=== PATIENT | female | born 1995 | race Asian ===

== ENCOUNTER 2018-08-05 08:26 | Inpatient (IN) | payer OTHER ==
--- NOTE | 2018-08-05 07:00 | GHP ---
DATE OF ADMISSION: 08/05/2018 PREOPERATIVE DIAGNOSIS: Painful retained hardware, right elbow. PLANNED PROCEDURE: Hardware removal, right elbow. HISTORY OF PRESENT ILLNESS: The patient is a 23-year-old female who was involved in a hiking acciden t a year or so ago, fell a long distance, and sustained a complex comminuted elbow fracture. Underwe nt 2 surgeries on that with hardware placement and ligament reconstruction. The hardware is now pain ful, and she would like to have that removed. PRIOR MEDICAL HISTORY: Depression. PRIOR SURGICAL HISTORY: Tibial nailing, hand surgery, and lumbar spine surgery. MEDICATIONS: Calcium 500 mg, iron 65 mg, multivitamin, and vitamin B12. ALLERGIES: No known drug allergies. SOCIAL HISTORY: She lives here in [place]. She does not smoke. Does not drink alcohol. REVIEW OF SYSTEMS: Unremarkable. No shortness of breath or chest pain. PHYSICAL EXAMINATION: VITAL SIGNS: She is 5 feet 8 inches tall and weighs 135 pounds. Blood pressu re is 110/62, heart rate 64. GENERAL APPEARANCE: Alert and oriented x3. HEENT: Normocephalic and atraumatic. Extraocular muscles are intact. NECK: Supple. There is no lymphadenopathy. No JVD. CHEST: Clear to auscultation. CARDIOVASCULAR: Regular rate and rhythm. ABDOMEN: Soft, nontender, and nondistended. EXTREMITIES: Focusing on the right elbow, well-healed incisions. There is no ef fusion. She lacks about 30 degrees of extension and flexes to 120 degrees. 70 degrees of pronation and supination. The elbow is stable to varus and valgus stress testing. She has 2+ radial and ulnar pulses. IMAGING: X-rays show retained hardware about the elbow. The fractures have healed. The elbow is co ncentrically reduced. ASSESSMENT: Painful retained hardware, right elbow. PLAN: The patient is also going to have some hardware removed by Dr. Merchant from her spine. We will plan on the olecranon plate removal, followed by spine hardware removal by Dr. Merchant. She will jus t be a soft dressing for the arm. We will restrict her activities until the incisions have healed ab out her elbow. The risks and benefits including infection, continued elbow pain, and stiffness in th e elbow despite removing the hardware; she understands all these risks and wishes to proceed. Viktor celis plan on surgery on Wednesday at the hospital. /[id number]/MODL
[2018-08-05] MEDS ORDERED: GABAPENTIN 300 MG CAP PO ONE (08:32)
[2018-08-05] MEDS ORDERED: ceFAZolin 2 GM/DEXTROSE 100 ML IV ONE (08:32)
[2018-08-05] MEDS ORDERED: ACETAMINOPHEN 500 MG TAB PO ONE (08:32)
[2018-08-05] MEDS ORDERED: LIDOCAINE 1% 2 ML INJ ID PRN (08:33)
[2018-08-05] MEDS ORDERED: LR 1,000 ML IV ONE (08:33)
[2018-08-05] MEDS ORDERED: BUPIVACAINE/EPI 0.5% 30 ML SDV ONE (09:06)
[2018-08-05] MEDS ORDERED: BUPIVACAINE 0.25% 30 ML SDV ONE (09:07)
[2018-08-05] MEDS ORDERED: EPINEPHrine 1 MG/ML INJ ONE (09:07)
[2018-08-05] MEDS ORDERED: CHLORHEXIDINE GLUC HIBICLENS 118 ML BTL TP ONE (09:07)
[2018-08-05] MEDS ORDERED: THROMBIN (BOVINE) 20,000 UNIT VIAL TP ONE (09:07)
[2018-08-05] MEDS ORDERED: POLYMYXIN B SULFATE 500,000 UNIT/10 ML SYR IRR ONE (09:08)
[2018-08-05] MEDS ORDERED: BACITRACIN 50,000 UNITS/10 ML SYR IRR ONE (09:09)
--- NOTE | 2018-08-05 09:39 | PDHPUP ---
History & Physical Update H&P update statement: This history and physical update is based on an assessment of the patient which was completed after admission or registration (within 24 hours), but prior to the surgery/procedure. H&P update: H&P reviewed & patient examined, no change in patient's condition since H&P completed
[2018-08-05] MEDS ORDERED: MIDAZOLAM 2 MG/2 ML VIAL IVP ONE (10:03)
--- NOTE | 2018-08-05 10:03 | PDANEPAE ---
ANE History of Present Illness here for hardware removal ANE Past Medical History - Cardiovascular History Hx Hypertension: No Hx Arrhythmias: No Hx Chest Pain: No Hx Coronary Artery / Peripheral Vascular Disease: No Hx CHF / Valvular Disease: No Hx Palpitations: No - Pulmonary History Hx COPD: No Hx Asthma/Reactive Airway Disease: No Hx Recent Upper Respiratory Infection: No Hx Oxygen in Use at Home: No Hx Sleep Apnea: No Sleep Apnea Screening Result - Last Documented: Negative - Neurologic History Hx Cerebrovascular Accident: No Hx Seizures: No Hx Dementia: No - Endocrine History Hx Diabetes: No - Renal History Hx Renal Disorders: No - Liver History Hx Hepatic Disorders: No - Neurological & Psychiatric Hx Hx Neurological and Psychiatric Disorders: No Neurological / Psychiatric History Comment: DPRESSION/ANXIETY. PTSD - Cancer History Hx Cancer: No - Congenital Disorder History Hx Congenital Disorders: No - GI History Hx Gastrointestinal Disorders: No - Other Health History Other Health History: NA - Chronic Pain History Chronic Pain: No - Surgical History Prior Surgeries: 2017 REVISION OR R ELBOW ORIF. 2016 LUMBAR FUSION AND ORIF OF R ELBOW. 2014 L TIBIA ORIF. 2013 L 5TH METATARSAL ORIF ANE Review of Systems Review of Systems: - Exercise capacity METS (RN): 6 METS ANE Patient History - Allergies Allergies/Adverse Reactions: No Known Allergies Allergy (Unverified 09/02/14 21:47) - Home Medications Home Medications: Tristanian Herbs 09/02/14 [Last Taken 07/22/18] - NPO status NPO Status: no food or drink >8 hours NPO Since - Liquids (Date): 08/05/18 NPO Since - Liquids (Time): 06:30 NPO Since - Solids (Date): 08/04/18 NPO Since - Solids (Time): 20:30 - Anes Hx Anes Hx: no prior problems - Smoking Hx Smoking Status: Never smoked - Alcohol Use Alcohol Use: None - Family Anes Hx Family Anes Hx: none Family Hx Anesthesia Complications: NA ANE Labs/Vital Signs - Vital Signs Blood Pressure: 98/69 Heart Rate: 66 Respiratory Rate: 10 O2 Sat (%): 100 Height: 170.18 cm Weight: 65.771 kg ANE Physical Exam - Airway Neck exam: FROM Mallampati Score: Class 2 Mouth exam: normal dental/mouth exam - Pulmonary Pulmonary: no respiratory distress, clear to auscultation - Cardiovascular Cardiovascular: regular rate and rhythym, no murmur, rub, or gallop - ASA Status ASA Status: I ANE Anesthesia Plan Anesthesia Plan: general endotracheal anesthesia Total IV Anesthesia: Yes
--- NOTE | 2018-08-05 10:03 | PDHPUP ---
History & Physical Update H&P update statement: This history and physical update is based on an assessment of the patient which was completed after admission or registration (within 24 hours), but prior to the surgery/procedure. H&P update: H&P reviewed & patient examined, no change in patient's condition since H&P completed (Consents signed and site marked. All questions answered. )
[2018-08-05] MEDS ORDERED: PROPOFOL/EMULSION 500 MG/50 ML BOTTLE IV ONE (10:06)
[2018-08-05] MEDS ORDERED: REMIFENTANIL HCL 1 MG VIAL ONE (10:06)
[2018-08-05] MEDS ORDERED: fentaNYL 100 MCG/2 ML INJ ONE ×3 (10:06→13:30)
[2018-08-05] MEDS ORDERED: PROPOFOL 200 MG/20 ML VIAL ONE (10:06)
[2018-08-05] MEDS ORDERED: ONDANSETRON 4 MG/2 ML VIAL ONE (10:54)
[2018-08-05] MEDS ORDERED: DEXAMETHASONE 4 MG/ML VIAL ONE (10:54)
--- NOTE | 2018-08-05 10:57 | POSTOPPROG ---
Post Op Note Date of Operation: 08/05/18 Surgeon: Sara Queen Manager Child: Bernice Anesthesia: GET(General Endotracheal) Pre-op Diagnosis: Hardware failure, low back pain Post-op Diagnosis: Hardware failure, low back pain Indication: Hardware failure, low back pain Inf/Abcess present in the surg proc area at time of surgery?: No PA Addendum - Addendum .: S: low back pain O: NAD A&Ox3 MAEx4 5/5 and equal in BUE and BLE A/P 23y/o F s/p exploration and removal of Lumbar fusion hardware -Advance diet as tolerated -Optimize pain management -Given extensive tissue dissection, will place in observation for pain management -Please notify NS with any change in neuro/motor exam
[2018-08-05] MEDS ORDERED: HYDROGEN PEROXIDE 236 ML BOTTLE TP ONE (11:21)
[2018-08-05] MEDS ORDERED: ePHEDrine SULFATE 25 MG/5 ML SYR ONE (12:08)
--- NOTE | 2018-08-05 12:29 | POSTOPPROG ---
Post Op Note Date of Operation: 08/05/18 Surgeon: Bruce Zabala Store Standards Associate: sera cool Anesthesiologist: bradford Anesthesia: GET(General Endotracheal) Pre-op Diagnosis: painful retained HW RT elbow Post-op Diagnosis: same Indication: retained HW Procedure: HW removal RT elbow Findings: healed olecranon fx Inf/Abcess present in the surg proc area at time of surgery?: No EBL: Minimal Complications: none
--- NOTE | 2018-08-05 12:46 | GOP ---
DATE OF OPERATION: 08/05/2018 SURGEON: Bruce Zabala MD SHELTERED WORKSHOP WORKER: Jb Phipps, BULK SYSTEM OPERATOR, [facility] ANESTHESIA: General. ANESTHESIOLOGIST: Tc Carrasquillo MD PREOPERATIVE DIAGNOSIS: Painful retained hardware, right elbow. POSTOPERATIVE DIAGNOSIS: Painful retained hardware, right elbow. PROCEDURE PERFORMED: Hardware removal, right elbow. FINDINGS: INDICATIONS: The patient is a 23-year-old female, who is status post a complex elbow injury that req uired 2 operations with open reduction and internal fixation and ligament repair. She has gone on to heal the fracture. Hardware remains painful and she still has some stiffness. Decision was made to proceed with a hardware removal. DESCRIPTION OF PROCEDURE: After appropriate informed consent was obtained, the patient taken to the operating room and placed supine on the operating table. Time-out was performed. Patient was identi fied and correct site was identified, matched to the radiographs in the room. She received 2 g of An cef preoperatively. Following the induction of general endotracheal tube anesthesia, the right upper extremity was prepped and draped in the usual sterile fashion. I exsanguinated the limb, inflated t he tourniquet to 250 mmHg. Total tourniquet time was 54 minutes. Using the previous posterior incis ion, soft tissues were carefully dissected. The plate was easily identified from the olecranon. This was removed. There were also 3 smaller modular hand plates that were also removed without difficult y. The wound was irrigated. Deep layers closed with 0 Vicryl, superficial layers closed with 2-0 Vi cryl. Skin was closed with annetta. We instilled 20 mL of 0.5% Marcaine around the incision. A sof t sterile dressing was applied. She was then repositioned with Dr. Merchant going to continue the proc edure to remove hardware from her lumbar spine. Eladio Phipps's assistance was required throughout e entire case. COMPLICATIONS: None. DRAINS: None. /[id number]/MODL
[2018-08-05] MEDS ORDERED: NALOXONE HCL 0.4 MG/ML INJ IVP PRN (13:11)
[2018-08-05] MEDS ORDERED: HYDROCODONE/APAP 5/325 TAB PO PRN (13:11)
[2018-08-05] MEDS ORDERED: oxyCODONE IR 5 MG TAB PO PRN (13:11)
[2018-08-05] MEDS ORDERED: ONDANSETRON 4 MG/2 ML VIAL IVP PRN ×2 (13:11→13:23)
[2018-08-05] MEDS ORDERED: ACETAMINOPHEN 500 MG TAB PO PRN (13:11)
[2018-08-05] MEDS ORDERED: HYDROmorphONE/DILAUDID 1 MG/ML INJ IVP PRN (13:11)
[2018-08-05] MEDS ORDERED: PROMETHAZINE HCL 25 MG/ML INJ IVP PRN (13:11)
[2018-08-05] MEDS ORDERED: DIAZEPAM 5 MG/ML 1 ML SYR IVP PRN (13:11)
--- NOTE | 2018-08-05 13:12 | POSTANESTH ---
Post Anesthetic Evaluation Cardiovascular Status: Normal, Stable, Similar to Pre-Op Cond Respiratory Status: Normal, Stable, Similar to Pre-op Cond. Level of Consciousness/Mental Status: Can Participate in Eval, Mildly Sleepy, Arousable Pain Control: Adequate, Prn Tx Ordered Nausea/Vomiting Control: Adequate, Prn Tx Ordered Complications Possibly Related to Anesthesia: None Noted
[2018-08-05] MEDS ORDERED: METHOCARBAMOL 750 MG TAB PO PRN (13:23)
[2018-08-05] MEDS ORDERED: POLYETHYLENE GLYCOL 3350 17 GM PKT PO PRN (13:23)
[2018-08-05] MEDS ORDERED: MAGNESIUM HYDROXIDE 30 ML UDCUP PO PRN (13:23)
[2018-08-05] MEDS ORDERED: BISACODYL 10 MG SUPP PR PRN (13:23)
[2018-08-05] MEDS ORDERED: diphenhydrAMINE 25 MG CAP PO PRN (13:23)
[2018-08-05] MEDS ORDERED: LACTULOSE 20 GM/30 ML UDCUP PO PRN (13:23)
[2018-08-05] MEDS ORDERED: ONDANSETRON DISINTEGRATING 4 MG TAB PO PRN (13:23)
[2018-08-05] MEDS ORDERED: HYDROmorphONE/DILAUDID 1 MG/ML INJ ONE (13:30)
[2018-08-05] MEDS: fentaNYL 100 MCG/2 ML INJ IVP PRN ×2 (13:33→13:52)
[2018-08-05] MEDS ORDERED: oxyCODONE IR 5 MG TAB ONE (13:49)
[2018-08-05] MEDS ORDERED: ACETAMINOPHEN 500 MG TAB ONE (13:50)
[2018-08-05] MEDS: ACETAMINOPHEN 500 MG TAB PO SCH ×2 (13:50→21:34)
--- NOTE | 2018-08-05 14:27 | GOP ---
DATE OF OPERATION: 08/05/2018 SURGEON: Jim Merchant MD VENDING MACHINE COLLECTOR: KAYLYNN Higgins ANESTHESIA: General. PREOPERATIVE DIAGNOSIS: 1. L4 through pelvic fixation, status post pelvic fracture and stabilization. 2. Hardware malfunction. 3. Low back pain. 4. Treatment refractory to nonoperative intervention. POSTOPERATIVE DIAGNOSIS: 1. L4 through pelvic fixation, status post pelvic fracture and stabilization. 2. Hardware malfunction. 3. Low back pain. 4. Treatment refractory to nonoperative intervention PROCEDURE PERFORMED: 1. Exploration and removal of lumbar hardware, L4 through pelvis, from the K2 fusion system. 2. Use of intraoperative fluoroscopy, less than 1 hour physician time. FINDINGS: broken hardware SPECIMENS: None. ESTIMATED BLOOD LOSS: 20 mL. COMPLICATIONS: None. INDICATIONS: The patient is a 23-year-old woman who unfortunately had a fall while climbing. She developed a pelvic fracture for which she underwent stabilization and fusion several years ago. She has been doing quite well. But given the fact that she has healed quite well from her overall injury, she would like to have her hardware removed to regain her mobility. She presents now for that surgical intervention. DESCRIPTION OF PROCEDURE: The patient was brought to the operating theater and underwent general endotracheal anesthesia without complications. She had Venodynes, GARY hose, and the appropriate lines placed by Anesthesia. Dr. Zabala and his team will then dictate in a separate operative report the hardware removed from her elbow. Once that was completed, our team was then called into the field. She was flipped prone on a Steve table. All bony processes inspected and padded. The previous lumbar incision was identified and marked, and then prepped and draped in the usual sterile surgical fashion. A time-out was completed per protocol. The patient had already received antibiotics for the elbow hardware removal portion of her surgery. The lumbar incision was infiltrated with Marcaine with epinephrine. The incision was then taken down with the scalpel blade. Using monopolar, the incision was taken down through the subcutaneous tissues to identify the spinous processes of L4, L5, S1. We then continued our dissection laterally to identify the bilateral pedicle screws at L4, L5, and the iliac wings. The hardware was noted to be broken at the bilateral rods between the L5 and pelvic screws. We then sequentially removed the cap screws from all 7 pedicle screws bilaterally and passed them off the field. We then removed the bilateral rods as well as the cross connector and passed them off the field. She was noted to have a loose cap screw on the left at L4 consistent with her broken hardware. We then sequentially removed the 4 pedicle screws including the bilateral L4, L5 , and the 4 iliac bolts and passed them off the field. The wounds were irrigated copiously with bacitracin irrigation. We closed the wound in multiple layers using Vicryl sutures for the deep layers and Dermabond for the skin. The patient's wound was dressed sterilely. She was then flipped supine onto the transfer cart, where she was awakened, extubated, and taken to the recovery room in stable condition. There were no complications. /[id number]/MODL MTDD
--- NOTE | 2018-08-05 16:32 | PDMN ---
Medical Necessity Medical necessity: Pt meets inpt criteria per MD order and [facility] S-[id number], Removal of Posterior Spinal Instrumentation, CPT 09543, inpt only surgery. Pt admitted for exploration of spinal fusion, removal of posterior spinal hardware, and removal of ortho hardware R elbow.
[2018-08-05] MEDS: ceFAZolin 2 GM/DEXTROSE 100 ML IV SCH (19:50)
[2018-08-05] MEDS: FAMOTIDINE 20 MG TAB PO SCH (20:29)
[2018-08-05] MEDS: SENNOSIDES/DOCUSATE SODIUM TAB PO SCH (20:30)
[2018-08-05] MEDS: oxyCODONE IR 5 MG TAB PO PRN (20:31)
[2018-08-06] MEDS: ceFAZolin 2 GM/DEXTROSE 100 ML IV SCH (03:14)
[2018-08-06] MEDS: ACETAMINOPHEN 500 MG TAB PO SCH ×2 (05:13→09:03)
[2018-08-06] MEDS ORDERED: NS 500 ML IV ONE (06:00)
[2018-08-06] MEDS: oxyCODONE IR 5 MG TAB PO PRN (06:27)
[2018-08-06 08:38] VITALS: BP 91/55
[2018-08-06] MEDS: SENNOSIDES/DOCUSATE SODIUM TAB PO SCH (09:02)
[2018-08-06] MEDS: FAMOTIDINE 20 MG TAB PO SCH (09:05)
--- NOTE | 2018-08-06 09:13 | NEUSURGPN ---
Assessment/Plan: A/P 23y/o F s/p exploration and removal of Lumbar fusion hardware POD1 -Optimize pain management -Dispo planning -Please notify NS with any change in neuro/motor exam Subjective: low back pain tolerable Objective: NAD A&Ox3 MAEx4 5/5 and equal in BUE and BLE. Mild sanguinous staining on dressing - Physician Discussed Patient with DrSergio: Mayur Neurosurgery Physical Exam - Vitals, I&O, Labs I and O 08/05/18 08/06/18 08/07/18 05:59 05:59 05:59 Intake Total 3455 Output Total 250 800 Balance 3205 -800 Weight 65.77 kg Intake: Oral (ml) 1805 IV Intake (ml) 1650 Output: Urine (ml) 225 800 Toilet 225 800 Estimated Blood Loss (ml) 25 Other: Intake Quantity Yes Sufficient Number of Voids Toilet 1 1 Number of Emesis 1 Occurrences Vital Signs Temp Pulse Resp BP Pulse Ox 36.6 C 70 16 91/55 L 96 08/06/18 08:00 08/06/18 08:00 08/06/18 08:00 08/06/18 08:00 08/06/18 08:00 ICD10 Worksheet Patient Problems: Problems Problem Status Onset Hardware failure of anterior column of spine Acute Lumbago Acute - ICD10 Problem Qualifiers (1) Hardware failure of anterior column of spine (2) Lumbago
--- NOTE | 2018-08-06 13:23 | ASMTLACE ---
ROSY Length of stay for Answers: 2 days current admission # of Emergency department Answers: 0 visits in the last 6 months Social determinants Answers: History of trauma (PTSD, child abuse, domestic violence, etc.) Mental health diagnosis (anxiety, depression, pers onality disorders, etc.) Score: 8 Date Signed: 08/06/2018 01:22 PM Electronically Signed By:WENDY Hadley
--- NOTE | 2018-08-06 13:25 | ASMTCMCOM ---
CM Note CM Note Notes: Pt medically stable for d/c, no CM d/c needs identified. Date Signed: 08/06/2018 01:25 PM Electronically Signed By:WENDY Hadley
== END 2018-08-06 12:45 | disposition home or self-care (01) | DRG 497 ==
LOC: FSGY 08:26 → F3N 13:23 → OBSVTOIN 16:27
PROVIDERS: ADMIT Physician Assistant; ATTEND Neurological Surgery
PROC: 0QP004Z Removal of Internal Fixation Device from Lumbar Vertebra, Open Approach (ICD-10-PCS; principal; 2018-08-05 10:30)
PROC: 0PPK04Z Removal of Internal Fixation Device from Right Ulna, Open Approach (ICD-10-PCS; 2018-08-05 10:30)
DX: T84.84XA Pain due to internal orthopedic prosthetic devices, implants and grafts, initial encounter (principal); T84.216A Breakdown (mechanical) of internal fixation device of vertebrae, initial encounter; Z87.81 Personal history of (healed) traumatic fracture; Z98.1 Arthrodesis status
CPT/HCPCS: J0171; J0690; J1100; J1170; J2250; J2405; J2704; J3010